=== PATIENT | male | born 1990 | race Caucasian/White ===

== ENCOUNTER 2016-12-09 23:50 | Emergency (ER) | payer OTHER | END 2016-12-10 02:12 | disposition left against medical advice (07) | LOC: ER 23:53 | DX: Z53.21 Procedure and treatment not carried out due to patient leaving prior to being seen by health care provider (principal) ==

== ENCOUNTER 2016-12-22 12:43 | Emergency (ER) | payer OTHER ==
[~2016-12-22] VITALS: Ht 167.6 cm; Wt 82.0 kg
[2016-12-22] MEDS ORDERED: IBUPROFEN 600MG TABLET PO ONE (14:45)
[2016-12-22 15:13] VITALS: BP 98/54
== END 2016-12-22 16:23 | disposition home or self-care (01) ==
LOC: ER 13:53
DX: H72.92 Unspecified perforation of tympanic membrane, left ear (principal); F12.10 Cannabis abuse, uncomplicated
CPT/HCPCS: 99282

== ENCOUNTER 2017-09-11 10:20 | Emergency (ER) | payer OTHER ==
[~2017-09-11] VITALS: Ht 167.6 cm; Wt 110.0 kg
[2017-09-11] MEDS ORDERED: KETOROLAC 30MG/ML VIAL IV STA (11:11)
[2017-09-11] MEDS ORDERED: SODIUM CHLORIDE 0.9% 1,000 ML IV ONE (11:11)
[2017-09-11] MEDS ORDERED: CEFTRIAXONE 2 G PREMIX 50 ML IV ONE (11:15)
[2017-09-11] MEDS ORDERED: DEXAMETHASONE 10 MG/ML VIAL IV ONE (11:15)
[2017-09-11 12:07] VITALS: BP 117/68
== END 2017-09-11 14:59 | disposition home or self-care (01) ==
LOC: ER 10:20
DX: J03.90 Acute tonsillitis, unspecified (principal); R03.0 Elevated blood-pressure reading, without diagnosis of hypertension; F12.90 Cannabis use, unspecified, uncomplicated
CPT/HCPCS: 96365; 96366; 96375; 99285; J0696; J1100; J1885; Z7610; J7030

== ENCOUNTER 2017-09-19 11:30 | Emergency (ER) | payer OTHER ==
[~2017-09-19] VITALS: Ht 170.2 cm; Wt 77.0 kg
[2017-09-19] MEDS ORDERED: SODIUM CHLORIDE 0.9% 1,000 ML IV ONE (14:22)
[2017-09-19] MEDS ORDERED: KETOROLAC 30MG/ML VIAL IV STA (14:22)
[2017-09-19] MEDS ORDERED: METOCLOPRAMIDE HCL 10MG/2ML VIAL IV ONE (14:30)
[2017-09-19 15:01] LABS: BASOPHILS % 0.2 % (0.0-2.0); EOSINOPHILS % 0.4 % (0.0-5.0); HEMATOCRIT. 40.9 % (42.0-52.0); HEMOGLOBIN. 13.7 g/dL (14.0-18.0); LYMPHOCYTES % 14.1 % (20.0-50.0); MEAN CORPUSCULAR HEMOGLOBIN 30.1 pg (28.0-32.0); MEAN CORPUSCULAR VOLUME 89.9 fL (80.0-94.0); MEAN PLATELET VOLUME 7.4 fl (7.4-10.4); MONOCYTES % 5.6 % (2.0-8.0); NEUTROPHILS % 79.7 % (40.0-76.0); PLATELET 380 x1000/uL (130-400); RED BLOOD CELL COUNT 4.55 mill/uL (4.7-6.1)
[2017-09-19 15:11] LABS: CARBON DIOXIDE 34 mEq/L (21-32); CHLORIDE 99 mEq/L (98-107)
[2017-09-19 15:43] VITALS: BP 99/49
== END 2017-09-19 16:34 | disposition home or self-care (01) ==
LOC: ER 11:37
DX: B34.9 Viral infection, unspecified (principal); E86.0 Dehydration
CPT/HCPCS: 36415; 80053; 85025; 96361; 96374; 96375; 99284; J1885; J2765; J7030

== ENCOUNTER 2017-10-19 03:06 | Emergency (ER) | payer OTHER ==
[~2017-10-19] VITALS: Ht 167.6 cm; Wt 73.0 kg
[2017-10-19] MEDS ORDERED: IBUPROFEN 400MG TABLET PO ONE (06:30)
[2017-10-19 08:05] VITALS: BP 120/72
== END 2017-10-19 08:09 | disposition home or self-care (01) ==
LOC: ER 03:28
DX: J02.9 Acute pharyngitis, unspecified (principal); R19.7 Diarrhea, unspecified; R51 Headache
CPT/HCPCS: 87804; 99284

== ENCOUNTER 2017-10-19 17:47 | Emergency (ER) | payer OTHER ==
[~2017-10-19] VITALS: Ht 170.2 cm; Wt 83.8 kg
[2017-10-19] MEDS ORDERED: KETOROLAC 60MG/2ML VIAL IM STA (20:12)
[2017-10-19 22:02] VITALS: BP 118/63
== END 2017-10-19 22:03 | disposition home or self-care (01) ==
LOC: ER 20:02
DX: J06.9 Acute upper respiratory infection, unspecified (principal); M60.9 Myositis, unspecified
CPT/HCPCS: 87070; 87430; 87804; 96372; 99284; J1885

== ENCOUNTER 2018-08-20 09:02 | Emergency (ER) | payer OTHER ==
[~2018-08-20] VITALS: Ht 167.6 cm; Wt 88.0 kg
[2018-08-20 09:18] VITALS: BP 123/71
== END 2018-08-20 10:51 | disposition left against medical advice (07) ==
LOC: ER 09:39
DX: Z53.21 Procedure and treatment not carried out due to patient leaving prior to being seen by health care provider (principal)

== ENCOUNTER 2018-09-06 08:41 | Emergency (ER) | payer OTHER ==
[~2018-09-06] VITALS: Ht 165.1 cm; Wt 90.0 kg
[2018-09-06] MEDS ORDERED: HYDROCODONE/ACETAMINOPHEN 5/325MG TABLET PO ONE (09:45)
[2018-09-06 10:33] VITALS: BP 115/91
== END 2018-09-06 10:52 | disposition home or self-care (01) ==
LOC: ER 09:34
DX: S50.11XA Contusion of right forearm, initial encounter (principal); S00.83XA Contusion of other part of head, initial encounter; Y08.89XA Assault by other specified means, initial encounter; Y93.89 Activity, other specified; Y92.89 Other specified places as the place of occurrence of the external cause
CPT/HCPCS: 29125; 73090; 73130; 99283

== ENCOUNTER 2019-03-30 20:59 | Emergency (ER) | payer OTHER ==
[~2019-03-30] VITALS: Ht 167.6 cm; Wt 88.0 kg
[2019-03-31] MEDS ORDERED: CLINDAMYCIN HCL 150MG CAPSULE PO STA (00:46)
[2019-03-31] MEDS ORDERED: HYDROCODONE/ACETAMINOPHEN 5/325MG TABLET PO ONE (01:00)
[2019-03-31 01:32] VITALS: BP 134/75
== END 2019-03-31 01:37 | disposition home or self-care (01) ==
LOC: ER 20:59
DX: S30.860A Insect bite (nonvenomous) of lower back and pelvis, initial encounter (principal); F17.200 Nicotine dependence, unspecified, uncomplicated; F12.10 Cannabis abuse, uncomplicated; W57.XXXA Bitten or stung by nonvenomous insect and other nonvenomous arthropods, initial encounter; Y93.89 Activity, other specified; Y92.89 Other specified places as the place of occurrence of the external cause; Y99.8 Other external cause status
CPT/HCPCS: 99283

== ENCOUNTER 2023-03-20 19:40 | Emergency (ER) | payer OTHER ==
[~2023-03-20] VITALS: Ht 167.6 cm; Wt 92.3 kg
[2023-03-20 19:49] VITALS: BP 152/130; TEMP 98.6; O2SAT 100
[2023-03-20 19:50] VITALS: PULSE 95; RESP 16
[2023-03-20] MEDS ORDERED: IBUP-2029 MT (22:20)
== END 2023-03-21 ==
LOC: ER 03-21 00:58
DX: M79.672 Pain in left foot (principal); F12.10 Cannabis abuse, uncomplicated; F15.10 Other stimulant abuse, uncomplicated
CPT/HCPCS: 73630; 99283

== ENCOUNTER 2023-11-09 21:38 | Emergency (ER) | payer SELFPAY ==
[~2023-11-09] VITALS: Ht 170.2 cm; Wt 65.0 kg
[~2023-11-09 21:38] MED LIST: CEPH500C2 MT; IBUP-2029 MT
[2023-11-09 21:42] VITALS: BP 127/79; PULSE 82; RESP 16; TEMP 97.8; O2SAT 100
== END 2023-11-10 | disposition home or self-care (01) ==
LOC: ER 21:57
DX: F15.10 Other stimulant abuse, uncomplicated (principal); R05.9 Cough, unspecified; F12.10 Cannabis abuse, uncomplicated
CPT/HCPCS: 71045; 99283; Z7610 ×4

== ENCOUNTER 2023-12-14 19:24 | Emergency (ER) | payer SELFPAY ==
[~2023-12-14] VITALS: Ht 167.6 cm; Wt 82.0 kg
[2023-12-14 20:16] VITALS: TEMP 97.8; O2SAT 99
[2023-12-14] MEDS ORDERED: CEFTRIAXONE SODIUM 500MG VIAL IM ONE (20:30)
[2023-12-14 20:45] LABS: CLARITY URINE CLEAR (CLEAR); COLOR URINE YELLOW (YELLOW); GLUCOSE URINE NEGATIVE (NEGATIVE); KETONES URINE NEGATIVE (NEGATIVE); LEUKOCYTE ESTERASE URINE NEGATIVE (NEGATIVE); NITRITE URINE NEGATIVE (NEGATIVE); OCCULT BLOOD URINE NEGATIVE (NEGATIVE); PH URINE 5.5 (4.5-8.0); PROTEIN URINE NEGATIVE (NEGATIVE); SPECIFIC GRAVITY URINE 1.031 (1.005-1.030)
[2023-12-14] MEDS ORDERED: DOXY100T2 MT (21:17)
[2023-12-14 22:00] VITALS: BP 112/85; PULSE 94; RESP 17
[2023-12-17 07:11] LABS: CHLAMYDIA TRACHOMATIS NAA Negative (Negative); NEISSERIA GONORRHOEAE NAA Negative (Negative)
== END 2023-12-14 22:02 | disposition home or self-care (01) ==
LOC: ER 19:24
DX: N45.2 Orchitis (principal); F12.90 Cannabis use, unspecified, uncomplicated; F15.90 Other stimulant use, unspecified, uncomplicated
CPT/HCPCS: 99284; 93976; 87491; 87591; 81003; 76870; J0696

== ENCOUNTER 2023-12-19 17:48 | Emergency (ER) | payer SELFPAY ==
[~2023-12-19] VITALS: Ht 170.2 cm; Wt 86.0 kg
[~2023-12-19 17:48] MED LIST changes: +DOXY100T2 MT
[2023-12-19 17:51] VITALS: BP 128/87; PULSE 109; RESP 16; TEMP 98.7; O2SAT 98
== END 2023-12-19 23:36 | disposition left against medical advice (07) ==
LOC: ER 17:48
DX: R07.9 Chest pain, unspecified (principal); Z53.21 Procedure and treatment not carried out due to patient leaving prior to being seen by health care provider
CPT/HCPCS: 93005; 99281